=== PATIENT | male | born 1990 | race Caucasian/White ===

== ENCOUNTER 2018-10-29 21:39 | Emergency (ER) | payer OTHER ==
--- NOTE | 2018-10-29 23:21 | EDM.PDOC ---
ED HPI GENERAL MEDICAL PROBLEM - General Chief Complaint: Lower Extremity Injury/Pain Stated Complaint: PT HURT RT KNEE Time Seen by Provider: 10/29/18 23:13 - History of Present Illness INITIAL COMMENTS - FREE TEXT/NARRATIVE: HISTORY AND PHYSICAL: History of present illness: The patient is a 28-year-old male with a history of an ACL repair around 10 years ago and presents with pain in his right knee that started yesterday while he was working very hard. He said he was doing a lot of up and down on stairs and movement and it got aggravated and he feels like the ligaments are very lax. He has had intermittent pain over the last years but nothing to this level and he has not taken anything for the pain. He would like referral for orthopedics and further evaluation here as able. He did not fall or bump the area and has no other systemic complaints Review of systems: As per history of present illness and below otherwise all systems reviewed and negative. Past medical history: As per history of present illness and as reviewed below otherwise noncontributory. Surgical history: As per history of present illness and as reviewed below otherwise noncontributory. Social history: No reported history of drug or alcohol abuse. Family history: As per history of present illness and as reviewed below otherwise noncontributory. Physical exam: HEENT: Atraumatic, normocephalic, negative for conjunctival pallor or scleral icterus, mucous membranes moist, throat clear, neck supple, nontender, trachea midline. Lungs: Clear to auscultation, breath sounds equal bilaterally, chest nontender. Heart: S1S2, regular, rate and rhythm no overt murmurs Abdomen: Soft, nondistended, nontender. NABS Pelvis: Stable nontender. Genitourinary: Deferred. Rectal: Deferred. Extremities: Atraumatic, full range of motion without defects or deficits. At the right knee there are no soft tissue changes such as ecchymosis or abrasions there is no warmth there is no joint fluid or effusion there is no soft tissue swelling and no palpable bony deformities. There is some ligamentous laxity with stress on the lateral collateral which is not excessive and there is no tenderness with this motion. The legs are negative for cords or calf pain. Neurovascular unremarkable. Neuro: Awake, alert, oriented. Cranial nerves II through XII unremarkable. Cerebellum unremarkable. Motor and sensory unremarkable throughout. Exam nonfocal. Diagnostics: X-ray right knee Therapeutics: Jamar bandage Diclofenac for home Impression: Right knee pain Definitive disposition and diagnosis as appropriate pending reevaluation and review of above. Right Knee Pain Score (Numeric/FACES): 1 - Related Data Allergies Allergy/AdvReac Type Severity Reaction Status Date / Time amoxicillin Allergy Other Verified 10/29/18 22:53 Penicillins Allergy Other Verified 10/29/18 22:53 Home Meds: Home Meds . [No Known Home Meds] 10/29/18 [History] Past Medical History Musculoskeletal History: Reports: Fracture Neurological History: Reports: Concussion Psychiatric History: Reports: Anxiety, Depression, Mood Swings, PTSD Hematologic History: Reports: None Immunologic History: Reports: None Oncologic (Cancer) History: Reports: None - Infectious Disease History Infectious Disease History: Reports: Chicken Pox Social & Family History - Tobacco Use Smoking Status *Q: Current Every Day Smoker Years of Tobacco use: 11 Packs/Tins Daily: 0.5 - Caffeine Use Caffeine Use: Reports: Coffee, Energy Drinks, Soda, Tea - Recreational Drug Use Recreational Drug Use: No Review of Systems - Review of Systems Review Of Systems: ROS reveals no pertinent complaints other than HPI. ED EXAM, GENERAL - Physical Exam Exam: See Below (See dictation) Course - Vital Signs Last Recorded V/S: Last Vital Signs Temp 36.4 C 10/29/18 22:50 Pulse 71 10/29/18 22:50 Resp 20 10/29/18 22:50 BP 129/76 10/29/18 22:50 Pulse Ox 98 10/29/18 22:50 - Orders/Labs/Meds Orders: Active Orders 24 hr Category Date Time Status Knee 3V Rt [CR] Stat Exams 10/29/18 21:52 Ordered DME for Discharge [COMM] Stat Oth 10/29/18 23:18 Ordered Departure - Departure Time of Disposition: 23:20 Disposition: Home, Self-Care 01 Condition: Good Clinical Impression: Right knee injury Qualifiers: Encounter type: initial encounter Qualified Code(s): S89.91XA - Unspecified injury of right lower leg, initial encounter - Discharge Information Referrals: PCP,None [Primary Care Provider] - Additional Instructions: The following information is given to patients seen in the emergency department who are being discharged to home. This information is to outline your options for follow-up care. We provide all patients seen in our emergency department with a follow-up referral. The need for follow-up, as well as the timing and circumstances, are variable depending upon the specifics of your emergency department visit. If you don't have a primary care physician on staff, we will provide you with a referral. We always advise you to contact your personal physician following an emergency department visit to inform them of the circumstance of the visit and for follow-up with them and/or the need for any referrals to a consulting specialist. The emergency department will also refer you to a specialist when appropriate. This referral assures that you have the opportunity for followup care with a specialist. All of these measure are taken in an effort to provide you with optimal care, which includes your followup. Under all circumstances we always encourage you to contact your private physician who remains a resource for coordinating your care. When calling for followup care, please make the office aware that this follow-up is from your recent emergency room visit. If for any reason you are refused follow-up, please contact the [facility] emergency department at and ask to speak to the emergency department charge nurse. [facility]--[place] [address] Please contact our orthopedics clinic in the morning for further care and treatment of your problem as we discussed. Ice and elevate the area and use the Jamar bandage during the daytime and remove at sleep times. Use [id number] Tylenol and you may also add the diclofenac you have been prescribed which is in the same family as Motrin so did not take the 2 together. Return to ER as needed and as discussed - My Orders Last 24 Hours: My Active Orders 10/29/18 23:18 DME for Discharge [COMM] Stat - Assessment/Plan Last 24 Hours: My Active Orders 10/29/18 23:18 DME for Discharge [COMM] Stat
--- NOTE | 2018-10-30 00:04 | CR ---
INDICATION: Pain after working out COMPARISON: None available. TECHNIQUE: The right knee was examined with AP, lateral and sunrise views for a total of three views. FINDINGS: There are tunnels in the distal femur and proximal tibia from ACL repair. A retention screw is in satisfactory position in the distal femoral tunnel. There is no sign of fracture or dislocation. The medial and lateral compartments are normal in height. There is no sign of a joint effusion. No soft tissue abnormality is seen. IMPRESSION: Normal appearance of the right knee status post ACL repair. Dictated by Carl Park MD @ Oct 30 2018 12:01AM Signed by Dr. Carl Park @ Oct 30 2018 12:03AM
== END 2018-10-29 23:30 | disposition home or self-care (01) ==
LOC: MW.ED 21:39
DX: S89.91XA Unspecified injury of right lower leg, initial encounter (principal); F17.210 Nicotine dependence, cigarettes, uncomplicated; X50.0XXA Overexertion from strenuous movement or load, initial encounter; Y99.0 Civilian activity done for income or pay; Z88.0 Allergy status to penicillin; Z88.1 Allergy status to other antibiotic agents; Z98.890 Other specified postprocedural states
CPT/HCPCS: 73562-26-RT; 73562-RT; 99282; 99283-25